=== PATIENT | female | born 1960 | race African-American/Black ===

== ENCOUNTER 2016-08-20 09:47 | Day surgery (SDC) | payer OTHER | END 2016-08-21 08:35 | disposition home or self-care (01) | LOC: GIL 09:47 | PROVIDERS: ATTEND Internal Medicine Gastroenterology | DX: Z12.11 Encounter for screening for malignant neoplasm of colon (principal); Z53.9 Procedure and treatment not carried out, unspecified reason ==

== ENCOUNTER 2016-09-12 08:28 | Day surgery (SDC) | payer OTHER ==
[~2016-09-12] VITALS: Ht 162.6 cm; Wt 76.3 kg
[2016-09-12 09:18] VITALS: Ht 162.6 cm; Wt 76.3 kg
[2016-09-12] MEDS ORDERED: LISI20TA11 PO (09:24)
[2016-09-12] MEDS ORDERED: HYDR12.58 PO (09:24)
[2016-09-12 09:34] VITALS: BP 134/80; PULSE 65; RESP 18
[2016-09-12] MEDS ORDERED: FENTAnyl 50 MCG/ML VIAL ONE (10:21)
[2016-09-12] MEDS ORDERED: MIDAZOLAM 1 MG/ML 2 ML INJ ONE ×2 (10:21)
[2016-09-12 10:45] VITALS: BP 107/71; RESP 20
--- NOTE | 2016-09-12 12:22 | GILP ---
DATE OF PROCEDURE: 09/12/2016 NAME OF PROCEDURE: Colonoscopy and polypectomy. PREOPERATIVE DIAGNOSIS: Screening colonoscopy to rule out colon polyps. POSTOPERATIVE DIAGNOSES: 1. About 7 mm polyp on a stalk was noted in the mid descending colon. This was snared and removed. 2. Diverticulosis. DESCRIPTION OF PROCEDURE: After informed written consent was obtained, the patient was asked to lie on the left lateral side, 3 mg Versed and 50 mcg of fentanyl was given as intravenous anesthesia. When the patient became somnolent, the Olympus video colonoscope was introduced into the rectum and scope was advanced all the way to the cecum. Entire colon now was examined. Diverticulosis noted s cattered along the colon. A 7 mm polyp was noted on a stalk in the mid descending colon. By using t he hot snare, polypectomy was performed. Polyp was sent for histology. Occasional diverticula note d scattered along the colon. No additional abnormalities detected, no bleeding noted and retroflexi on was performed, no internal hemorrhoids. No external hemorrhoids were noted and the procedure was terminated. PLAN: Recommend wait for the pathology report. Dictated By: JIMMY GOODWIN/LILIANA Conf#: [id number] DID#: [id number] CC: JIMMY AMANDA MD; ROBIN OZUNA;*[facility]*
== END 2016-09-12 11:20 | disposition home or self-care (01) ==
LOC: GIL 08:28
PROVIDERS: ATTEND Internal Medicine Gastroenterology
DX: Z12.11 Encounter for screening for malignant neoplasm of colon (principal); D12.2 Benign neoplasm of ascending colon; K57.30 Diverticulosis of large intestine without perforation or abscess without bleeding; I10 Essential (primary) hypertension; Z83.3 Family history of diabetes mellitus
CPT/HCPCS: 45385; J2250; J3010; Z7610; 88305